=== PATIENT | male | born 1945 | race Caucasian/White ===

== ENCOUNTER → 2017-04-12 | Outpatient (CLI) | payer MEDICARE ==
--- NOTE | 2017-04-12 15:09 | XR ---
EXAMINATION TYPE: XR chest 2V DATE OF EXAM: 04/12/2017 COMPARISON: Prior chest x-ray 09/25/2015 HISTORY: Acute bronchitis, cough TECHNIQUE: Frontal and lateral views of the chest are obtained. FINDINGS: No evident pneumothorax. The cardiac silhouette size is within normal limits. Patient is rotated. There is blunting of the left costophrenic angle, increased density present at the posterior costophrenic sulcus. The osseous structures are intact. IMPRESSION: There may be left lower lobe pneumonia, associated effusion. Findings of developed in th e interval. Follow-up is recommended.
== END | disposition home or self-care (01) ==
LOC: RADXRMAIN 12:52
PROVIDERS: ATTEND Internal Medicine
DX: J20.9 Acute bronchitis, unspecified (principal)
CPT/HCPCS: 71020

== ENCOUNTER → 2017-07-28 | Outpatient (CLI) | payer MEDICARE ==
--- NOTE | 2017-07-28 11:23 | XR ---
EXAMINATION TYPE: XR chest 2V DATE OF EXAM: 07/28/2017 COMPARISON: Prior exam 04/12/2017 HISTORY: Pleurisy, chest pain with cough TECHNIQUE: Frontal and lateral views of the chest are obtained. FINDINGS: There is no focal air space opacity, pleural effusion, or pneumothorax seen. Interval impr ovement of the left costophrenic angle visualization as compared to prior. The cardiac silhouette siz e is stable. Prominent lung volumes may be indicative of underlying COPD. There is bronchial wall thi ckening. Patient is rotated, suspect an underlying scoliosis. The osseous structures are intact. IMPRESSION: Correlate for bronchitis. Follow-up as indicated.
== END | disposition home or self-care (01) ==
LOC: RADXRYALE 10:00
PROVIDERS: ATTEND Internal Medicine
DX: R09.1 Pleurisy (principal)
CPT/HCPCS: 71020

== ENCOUNTER → 2017-09-26 | Outpatient (CLI) | payer MEDICARE ==
[2017-09-26 10:46] LABS: Anion Gap 8 mmol/L; Blood Urea Nitrogen 19 mg/dL (9-20); Carbon Dioxide 31 mmol/L (22-30); Chloride 101 mmol/L (98-107); Glucose 106 mg/dL (74-99); Potassium 4.4 mmol/L (3.5-5.1); Sodium 140 mmol/L (137-145)
== END | disposition home or self-care (01) ==
LOC: LABWHC1 10:00
PROVIDERS: ATTEND Internal Medicine Geriatric Medicine
DX: E87.6 Hypokalemia (principal)
CPT/HCPCS: 36415; 80048

== ENCOUNTER → 2018-12-26 | Outpatient (CLI) | payer MEDICARE, OTHER ==
--- NOTE | 2018-12-26 17:35 | CONS ---
CONSULTATION REASON FOR CONSULTATION: Sleep apnea. HISTORY OF PRESENT ILLNESS: This is a 73-year-old male patient was diagnosed having obstructive sleep apnea many years back through [facility]. The patient was given a CPAP machine. However, he ended up quitting the treatment as the treatment itself was making sleep quality worsened and he was not able to tolerate the treatment. Over the years, he was having increased snoring and witnessed apneas as reported by his and he is coming in for reevaluation. He goes to bed around 11:30 p.m., wakes up at 8 a.m. in the morning. He is a bit sleepy and tired during the day. His current Stuart Score is 10. No significant weight gain or weight loss over the years. He has developed issues with atrial fibrillation and he is also known to have hypertension, rheumatoid arthritis, hyperlipidemia diabetes mellitus, and acid reflux. Other comorbidities include prostate cancer and skin cancer. PAST MEDICAL HISTORY: 1. Obstructive sleep apnea. 2. Chronic atrial fibrillation. 3. Kidney stones. 4. Hypertension. 5. Rheumatoid arthritis. 6. Hyperlipidemia. 7. Diabetes mellitus. 8. Acid reflux. 9. Prostate cancer. 10.Skin cancer. SURGICAL HISTORY: Includes prostatectomy and skin cancer removal. DRUG ALLERGIES: Not known. He has hayfever. OUTPATIENT MEDICATION LIST: Includes: 1. Combination of Telmisartan and hydrochlorothiazide 80/12.5, 1 tablet a day. 2. Norvasc 10 daily. 3. Prednisone 5 every other day. 4. Hydralazine 25 mg p.o. twice a day. 5. Lipitor 20 mg once a day. 6. Metformin 5 mg p.o. daily. 7. Lansoprazole 30 mg p.o. daily. 8. Aspirin 81 mg p.o. daily. SOCIAL HISTORY: The patient is a nonsmoker. No history of alcohol. No history of IV drugs. FAMILY HISTORY: Negative for obstructive sleep apnea. OCCUPATIONAL HISTORY: The patient used to work in construction. REVIEW OF SYSTEMS: 14 point review of system was done. Positive findings are mentioned in history of present illness. The patient does not watch TV during the day. He said he sleeps on his side. He has gained some weight over the years. In fact, he has been fluctuating. Used to weigh 220 pounds. He went down to 175, and currently is up to 190. No sleep paralysis. No hallucinations. No cataplexy. No nasal polyposis. He is a nose breather. No history of any anemia. No depression or anxiety. No falls. No claustrophobia. Occasional grinding of the teeth has been reported. Otherwise a 14- point review of system is negative. PHYSICAL EXAMINATION: BP is 170/87, pulse 88, respirations 16, temp 98.4, saturation is 98% on room air. Weight is 210, height 5 feet 8 inches and BMI 31.9. Neck size 17.5 inches, Stuart score is 10. GENERAL APPEARANCE: Calm, comfortable. Head is atraumatic, normocephalic. NECK: Supple. Mallampati class IV. There is no goiter or neck masses. LUNGS: Clear to auscultation. HEART: Sounds regular rate and rhythm. Normal S1, S2. No S3. No murmurs. ABDOMEN: Soft, nontender. No organomegaly. EXTREMITIES: No edema. No cyanosis or clubbing. NEUROLOGIC: Alert and oriented x3. No focal neurological deficits. PSYCHIATRIC: Negative for anxiety or depression. SKIN: Negative for wounds or ulceration. IMPRESSION: 1. Obstructive sleep apnea. The patient has failed CPAP therapy in the past. He is coming in for reevaluation. 2. Mild fatigue and sleepiness, Stuart Score is 10. 3. History of atrial fibrillation. 4. History of hypertension. 5. Rheumatoid arthritis. 6. Hyperlipidemia. 7. Diabetes mellitus. 8. Acid reflux. 9. Prostate cancer. 10.Skin cancer. PLAN: The patient will be set up for a re-evaluation. He will need a polysomnogram to assess the presence and severity of obstructive sleep apnea and decide if treatment is needed. Note that he has been treated in the past with CPAP therapy and he has failed for reasons that are not clear to me. For all these reasons, we will re-evaluate his condition and make final decision if treatment is needed. MMODL / IJN: [id number] /
== END | disposition home or self-care (01) ==
LOC: SLEEP 13:04
PROVIDERS: ATTEND Internal Medicine Critical Care Medicine
DX: G47.33 Obstructive sleep apnea (adult) (pediatric) (principal); R53.83 Other fatigue; I48.2 Chronic atrial fibrillation; I10 Essential (primary) hypertension; M06.9 Rheumatoid arthritis, unspecified; E78.5 Hyperlipidemia, unspecified; F17.200 Nicotine dependence, unspecified, uncomplicated; E11.9 Type 2 diabetes mellitus without complications; K21.9 Gastro-esophageal reflux disease without esophagitis; C44.90 Unspecified malignant neoplasm of skin, unspecified; C61 Malignant neoplasm of prostate; Z90.79 Acquired absence of other genital organ(s); Z79.84 Long term (current) use of oral hypoglycemic drugs; Z79.52 Long term (current) use of systemic steroids; Z79.82 Long term (current) use of aspirin; Z87.442 Personal history of urinary calculi
CPT/HCPCS: 99211

== ENCOUNTER 2020-03-10 07:18 | Emergency (ER) | payer MEDICARE, OTHER ==
[2020-03-10 07:27] VITALS: RESP 18
--- NOTE | 2020-03-10 07:40 | ED ---
General Adult HPI - General Chief complaint: Abdominal Pain Stated complaint: Kidney Stone Time Seen by Provider: 03/10/20 07:22 Source: patient Mode of arrival: ambulatory Limitations: no limitations - History of Present Illness Initial comments: Dictation was produced using [employer] dictation software. please excuse any grammatical, word or spelling errors. This patient was cared for during a federal and state declared state of emergency secondary to Covid 19 Chief Complaint: 74-year-old male past medical history of kidney stones, atrial fibrillation, hypertension, sleep apnea and rheumatoid arthritis presents with right flank pain. History of Present Illness: 74-year-old male he has multiple comorbidities presents today with several weeks of right-sided flank pain. Patient states he has a history of kidney stones. He believes that his symptoms represent kidney stones. Patient states his pain is to the right lower back. He reports that his symptoms initially started couple weeks ago. Over the last 3-4 days to symptoms have been acutely worsening. Patient states he has a history of calcium oxalate stones. He's had multiple lithotripsies and mechanical removal of stones. He does not have an established urologist in town does complain of some mild nausea and nonbilious nonbloody emesis. He states that his symptoms have been fairly control of her last 48 hours. Denies any fever, chills or constitutional symptoms. He reports that his pain is more towards his posterior flank area on the right side. States that it is colicky in nature. The ROS documented in this emergency department record has been reviewed and confirmed by me. Those systems with pertinent positive or negative responses have been documented in the HPI. All other systems are other negative and/or noncontributory. PHYSICAL EXAM: General Impression: Alert and oriented x3, not in acute distress HEENT: Normocephalic atraumatic, extra-ocular movements intact, pupils equal and reactive to light bilaterally, mucous membranes moist. Cardiovascular: Heart regular rate and rhythm Chest: Able to complete full sentences, no retractions, no tachypnea Abdomen: abdomen soft, non-tender, non-distended, no organomegaly Musculoskeletal: Pulses present and equal in all extremities, no peripheral edema Motor: no focal deficits noted Neurological: CN II-XII grossly intact, no focal motor or sensory deficits noted Skin: Intact with no visualized rashes Psych: Normal affect and mood ED course: 74-year-old male past medical history of kidney stones presents with chief complaint of right lower back pain and right flank pain. All signs upon arrival are within acceptable limits. Laboratory evaluation obtained. CBC unremarkable. No leukocytosis. Coag panel unremarkable. Metabolic panel is negative. Urinalysis is negative. Computed tomography scan of the abdomen and pelvis shows arthritic changes to the lumbar spine, diverticulosis, bilateral nonobstructive nephrolithiasis, cholelithiasis. Patient evaluated bedside finding stable medical condition. This point there is no indication for antibiotic administration or inpatient admission. Patient's well-appearing. He is agreeable with discharge. He is given outpatient for her to urology. Patient told of the incidental finding seen on the CT. He is advised to follow-up with his primary care physician regarding these abnormalities. Return parameters discussed. Patient clear for discharge. EKG interpretation: Ventricular rate 38, atrial fibrillation and so ventricular response, QRS 120, QTC 370. No LA prolongation, no QTC prolongation, no ST or T- wave changes noted. - Related Data Home Medications Medication Instructions Recorded Confirmed Hydrochlorothiazide [Hydrodiuril] 25 mg PO BID 05/29/14 05/29/14 Lansoprazole 30 mg PO DAILY 05/29/14 05/29/14 Leflunomide [Arava] 20 mg PO DAILY 05/29/14 05/30/14 Losartan [Cozaar] 100 mg PO HS 05/29/14 05/29/14 Methotrexate Sodium [Methotrexate] 20 mg PO Q7D 05/29/14 05/30/14 predniSONE 2.5 mg PO DAILY 05/29/14 05/30/14 traMADol HCl [Ultram] 100 mg PO BID PRN 05/29/14 05/29/14 Cholecalciferol [Vitamin D3] 1,000 unit PO HS 05/30/14 05/30/14 Folic Acid 05/30/14 05/30/14 Vitamin B Complex 1 tab PO HS 05/30/14 05/30/14 Allergies Allergy/AdvReac Type Severity Reaction Status Date / Time No Known Allergies Allergy Verified 03/10/20 07:27 Review of Systems ROS Statement: Those systems with pertinent positive or pertinent negative responses have been documented in the HPI. ROS Other: All systems not noted in ROS Statement are negative. Past Medical History Past Medical History: Atrial Fibrillation, Asthma, Cancer, GERD/Reflux, Hypertension, Osteoarthritis (OA), Rheumatoid Arthritis (RA), Sleep Apnea/CPAP/BIPAP Additional Past Medical History / Comment(s): PROSTATE AND SKIN CANCER, hx kidney stones History of Any Multi-Drug Resistant Organisms: None Reported Past Surgical History: Bladder Surgery, Heart Catheterization, Orthopedic Surgery, Prostate Surgery Additional Past Surgical History / Comment(s): removal of skin cancer, deviated septum, left knee surgery, rt shoulder rotator cuff Past Anesthesia/Blood Transfusion Reactions: Previous Problems w/ Anesthesia Additional Past Anesthesia/Blood Transfusion Reaction / Comment(s): ATRIAL FIBRILLATION Past Psychological History: No Psychological Hx Reported Smoking Status: Never smoker Past Alcohol Use History: Rare Past Drug Use History: None Reported - Past Family History Mother Family Medical History: Cancer General Exam Limitations: no limitations Course Vital Signs 03/10/20 07:22 Temperature 98.1 F Pulse Rate 47 L Respiratory 18 Rate Blood Pressure 158/80 O2 Sat by Pulse 97 Oximetry Medical Decision Making - Lab Data Result diagrams: 03/10/20 07:52 03/10/20 07:52 Lab Results 03/10/20 03/10/20 03/10/20 Range/Units 07:52 07:52 07:52 WBC 7.8 (3.8-10.6) k/uL RBC 4.52 (4.30-5.90) m/uL Hgb 13.8 (13.0-17.5) gm/dL Hct 43.1 (39.0-53.0) % MCV 95.5 (80.0-100.0) fL MCH 30.6 (25.0-35.0) pg MCHC 32.0 (31.0-37.0) g/dL RDW 13.8 (11.5-15.5) % Plt Count 295 (150-450) k/uL Neutrophils % 68 % Lymphocytes % 18 % Monocytes % 6 % Eosinophils % 6 % Basophils % 1 % Neutrophils # 5.3 (1.3-7.7) k/uL Lymphocytes # 1.4 (1.0-4.8) k/uL Monocytes # 0.5 (0-1.0) k/uL Eosinophils # 0.5 (0-0.7) k/uL Basophils # 0.1 (0-0.2) k/uL PT 9.6 (9.0-12.0) sec INR 0.9 (<1.2) APTT 21.7 L (22.0-30.0) sec Sodium (137-145) mmol/L Potassium (3.5-5.1) mmol/L Chloride (98-107) mmol/L Carbon Dioxide (22-30) mmol/L Anion Gap mmol/L BUN (9-20) mg/dL Creatinine (0.66-1.25) mg/dL Est GFR (CKD-EPI)AfAm (>60 ml/min/1.73 sqM) Est GFR (CKD-EPI)NonAf (>60 ml/min/1.73 sqM) Glucose (74-99) mg/dL Calcium (8.4-10.2) mg/dL Urine Color Dark Yellow Urine Appearance Clear (Clear) Urine pH 5.5 (5.0-8.0) Ur Specific [place] 1.026 (1.001-1.035) Urine Protein Trace H (Negative) Urine Glucose (UA) Negative (Negative) Urine Ketones Negative (Negative) Urine Blood Negative (Negative) Urine Nitrite Negative (Negative) Urine Bilirubin Negative (Negative) Urine Urobilinogen 2.0 (<2.0) mg/dL Ur Leukocyte Esterase Negative (Negative) 03/10/20 Range/Units 07:52 WBC (3.8-10.6) k/uL RBC (4.30-5.90) m/uL Hgb (13.0-17.5) gm/dL Hct (39.0-53.0) % MCV (80.0-100.0) fL MCH (25.0-35.0) pg MCHC (31.0-37.0) g/dL RDW (11.5-15.5) % Plt Count (150-450) k/uL Neutrophils % % Lymphocytes % % Monocytes % % Eosinophils % % Basophils % % Neutrophils # (1.3-7.7) k/uL Lymphocytes # (1.0-4.8) k/uL Monocytes # (0-1.0) k/uL Eosinophils # (0-0.7) k/uL Basophils # (0-0.2) k/uL PT (9.0-12.0) sec INR (<1.2) APTT (22.0-30.0) sec Sodium 138 (137-145) mmol/L Potassium 4.1 (3.5-5.1) mmol/L Chloride 104 (98-107) mmol/L Carbon Dioxide 25 (22-30) mmol/L Anion Gap 9 mmol/L BUN 18 (9-20) mg/dL Creatinine 0.98 (0.66-1.25) mg/dL Est GFR (CKD-EPI)AfAm 88 (>60 ml/min/1.73 sqM) Est GFR (CKD-EPI)NonAf 76 (>60 ml/min/1.73 sqM) Glucose 127 H (74-99) mg/dL Calcium 9.4 (8.4-10.2) mg/dL Urine Color Urine Appearance (Clear) Urine pH (5.0-8.0) Ur Specific [place] (1.001-1.035) Urine Protein (Negative) Urine Glucose (UA) (Negative) Urine Ketones (Negative) Urine Blood (Negative) Urine Nitrite (Negative) Urine Bilirubin (Negative) Urine Urobilinogen (<2.0) mg/dL Ur Leukocyte Esterase (Negative) Disposition Clinical Impression: Back pain Disposition: HOME SELF-CARE Condition: Good Instructions (If sedation given, give patient instructions): Gallstones (ED), Kidney Stones (ED), Chronic Back Pain (DC) Is patient prescribed a controlled substance at d/c from ED?: No Referrals: Catherine Lewis MD [Primary Care Provider] - 1-2 days Heriberto Patino MD [STAFF PHYSICIAN] - 1-2 days Time of Disposition: 09:22
[2020-03-10 07:59] LABS: Appearance,Urine Clear (Clear); Basophils # (A) 0.1 k/uL (0-0.2); Basophils % (A) 1 %; Bilirubin,Urine Negative (Negative); Blood,Urine Negative (Negative); Color,Urine Dark Yellow; Eosinophils # (A) 0.5 k/uL (0-0.7); Eosinophils % (A) 6 %; Glucose,Urine (UA) Negative (Negative); HCT 43.1 % (39.0-53.0); HGB 13.8 gm/dL (13.0-17.5); Ketones,Urine Negative (Negative); Leukocyte Esterase,Urine Negative (Negative); Lymphocytes # (A) 1.4 k/uL (1.0-4.8); Lymphocytes % (A) 18 %; MCH 30.6 pg (25.0-35.0); MCV 95.5 fL (80.0-100.0); Mean Platelet Volume 7.3; Monocytes # (A) 0.5 k/uL (0-1.0); Monocytes % (A) 6 %; Neutrophils # (A) 5.3 k/uL (1.3-7.7); Neutrophils % (A) 68 %; Nitrite,Urine Negative (Negative); PH, Urine 5.5 (5.0-8.0); Platelet Count 295 k/uL (150-450); Protein,Urine Trace (Negative); RBC 4.52 m/uL (4.30-5.90); RDW 13.8 % (11.5-15.5); Specific Gravity,Urine 1.026 (1.001-1.035); WBC 7.8 k/uL (3.8-10.6)
[2020-03-10 08:12] LABS: Calcium 9.4 mg/dL (8.4-10.2); Potassium 4.1 mmol/L (3.5-5.1)
[2020-03-10 08:14] LABS: INR 0.9 (<1.2); Prothrombin Time 9.6 sec (9.0-12.0)
[2020-03-10 08:17] LABS: Partial Thromboplastin Time 21.7 sec (22.0-30.0)
--- NOTE | 2020-03-10 09:05 | CT ---
EXAMINATION TYPE: CT abdomen pelvis wo con DATE OF EXAM: 03/10/2020 COMPARISON: None HISTORY: 74-year-old male Kidney stones, right flank pain CT DLP: 875.7 mGycm. Automated exposure control for dose reduction was used. TECHNIQUE: Contiguous axial scanning of the abdomen and pelvis without IV contrast. Coronal and sagit elier reconstructions performed. FINDINGS: Heart normal size without pericardial effusion. Lung bases clear without pleural effusion. Small hiatal hernia. Noncontrast appearance of the liver, adrenal glands, spleen, and pancreas within normal limits. 5 nonobstructive right renal calculi measuring up to 4 mm. 3 nonobstructive left renal calculi measuring up to 6 mm. No hydronephrosis on either side. Bilateral perinephric stranding likely senescent change. Calculi measuring up to 1.4 cm and the nondistended gallbladder. No dilated small bowel, fluid, or free air. No mesenteric or retroperitoneal lymphadenopathy. Normal appendix. Mild stool burden. Left-sided colonic diverticulosis, greatest in the sigmoid colon. No pericolonic inflammatory change. Mild circumferential bladder wall thickening. Left-sided pelvic phleboliths. Prostate gland not visua lized. No abnormal fluid collection in the pelvis or pelvic lymphadenopathy. Bones: Mild degenerative change at the hips. Degenerative changes left SI joint. Nonspecific small sclerotic foci left iliac bone adjacent to the SI joint, likely bone islands. Moder ate degenerative disc disease throughout and hypertrophic facet arthropathy lower lumbar spine. Trace grade 1 anterolisthesis L4-L5. IMPRESSION: 1. Bilateral nonobstructive nephrolithiasis measuring up to 6 mm. No hydronephrosis or suspicious ur eteral calculus. 2. Cholelithiasis. 3. Left-sided colonic diverticulosis, greatest in the sigmoid colon. No evidence for acute diverticu litis. 4. Circumferential bladder wall thickening could represent chronic bladder wall hypertrophy. Correla te to exclude cystitis. 5. Small hiatal hernia. Prostate gland is small or surgically absent. Clinically correlate.
[2020-03-10] MEDS ORDERED: ACET/COD 300 MG/30 MG STARTER PACK 6 TAB BTL PO STA (09:22)
[2020-03-10 09:33] VITALS: BP 140/84; PULSE 44; TEMP 98
== END 2020-03-10 09:39 | disposition home or self-care (01) ==
LOC: EC 07:18
DX: N20.0 Calculus of kidney (principal); K80.20 Calculus of gallbladder without cholecystitis without obstruction; K57.30 Diverticulosis of large intestine without perforation or abscess without bleeding; J45.909 Unspecified asthma, uncomplicated; I10 Essential (primary) hypertension; I48.91 Unspecified atrial fibrillation; M06.9 Rheumatoid arthritis, unspecified; G47.30 Sleep apnea, unspecified; Z79.899 Other long term (current) drug therapy; Z79.52 Long term (current) use of systemic steroids; Z99.89 Dependence on other enabling machines and devices; Z80.9 Family history of malignant neoplasm, unspecified; Z85.828 Personal history of other malignant neoplasm of skin; Z85.46 Personal history of malignant neoplasm of prostate; Z95.5 Presence of coronary angioplasty implant and graft; Z98.890 Other specified postprocedural states
CPT/HCPCS: 36415; 74176; 80048; 81003; 85025; 85610; 85730; 93005; 99284

== ENCOUNTER → 2020-03-12 | Outpatient (CLI) | payer MEDICARE, OTHER ==
--- NOTE | 2020-03-12 13:02 | XR ---
EXAMINATION TYPE: XR abdomen 1V DATE OF EXAM: 03/12/2020 COMPARISON: 03/10/2020 HISTORY: Pain TECHNIQUE: One view abdominal series FINDINGS: The osseous structures are intact. The bowel gas pattern is nonspecific. Right upper quadrant calcif ication correlate for cholelithiasis. Right kidney: There are approximately 5 calcifications involving the right kidney measuring approxima tely 4 mm in greatest dimension. Left kidney: There are approximately 3 calculi in the left kidney with the greatest diameter measurin g 4 mm.. Hypertrophic and degenerative changes spine. Calcifications in the pelvis are stable and likely vascu lar. Arthropathy of the hips. IMPRESSION: 1. Nonspecific abdomen. 2. Bilateral nephrolithiasis similar to the prior exam. 3. Right upper quadrant calcification compatible with cholelithiasis.
== END | disposition home or self-care (01) ==
LOC: RADXRMAIN 12:33
PROVIDERS: ATTEND Urology
DX: N20.0 Calculus of kidney (principal)
CPT/HCPCS: 74018

== ENCOUNTER → 2020-03-24 | Outpatient (CLI) | payer MEDICARE, OTHER ==
--- NOTE | 2020-03-24 22:00 | XR ---
EXAMINATION TYPE: XR abdomen 1V DATE OF EXAM: 03/24/2020 12:06 PM CLINICAL HISTORY: Kidney stone. TECHNIQUE: Single supine KUB image of the abdomen is obtained. COMPARISON: CT abdomen and pelvis March 10, 2020. Abdominal x-ray March 12, 2020.. FINDINGS: Poor visualization of small right-sided renal calculi on plain films similar to prior x-ray . Redemonstration of 2-3 adjacent small lower pole left renal calculi measuring up to 5 mm. Finding s table from prior studies. Overall nonobstructive bowel gas pattern. Persistent left-sided pelvic phleboliths. Visualized osseou s structures are intact. IMPRESSION: As above.
== END | disposition home or self-care (01) ==
LOC: RADXRMAIN 11:56
PROVIDERS: ATTEND Urology
DX: N20.0 Calculus of kidney (principal); I87.8 Other specified disorders of veins
CPT/HCPCS: 74018

== ENCOUNTER 2020-06-09 08:24 | Day surgery (SDC) | payer MEDICARE, OTHER ==
[2020-06-05 15:15] VITALS: BMI 29.5
[~2020-06-09 08:24] MED LIST: SODIUM CHLORIDE 0.9% 1,000 ML IV SCH; ceFAZolin 1,000 MG in SODIUM CHLORIDE 0.9% IRRIGATIO 250 ML IRRIGATION ONE
[2020-06-09 08:51] LABS: Glucose,Whole Blood 102 mg/dL (75-99)
[2020-06-09] MEDS ORDERED: PROPOFOL 10 MG/ML 20 ML VIAL IV ONE (09:29)
[2020-06-09] MEDS ORDERED: fentaNYL (PF) 50 MCG/ML 2 ML AMP ONE (09:29)
[2020-06-09] MEDS ORDERED: MIDAZOLAM 2 MG/2 ML VIAL ONE (09:29)
[2020-06-09] MEDS ORDERED: LIDOCAINE 1% INJ 10MG/ML (20 ML MDV) ONE ×2 (10:14→10:34)
[2020-06-09] MEDS ORDERED: LIDOCAINE 1% INJ 10MG/ML (20 ML MDV) SQ ONE (10:26)
[2020-06-09] MEDS ORDERED: SODIUM CHLORIDE 0.9% 1,000 ML IV ONE (11:25)
--- NOTE | 2020-06-09 12:35 | P.PRLE ---
RE: Gerardo Benavides Dear Catherine Gerardo underwent dual-chamber biventricular pacemaker with His bundle pacing successfully Patients with AV node disease or severe bradycardia, in whom the anticipated right ventricular pacing percentage will be high with standard dual-chamber pacing are at a disadvantage since RV pacing over years promotes LV systolic dysfunction and heart failure as well as increased episodes of atrial fibrillation. Biventricular pacing either using an LV lead in the coronary epicardial veins or His bundle pacing promotes a synchronized LV contraction and preserves LV systolic function with reduction in heart failure. One advantage of His bundle pacing is that it promotes conduction down both the normal bundles, simulating intrinsic conduction and preserving LV systolic function This is especially so in patients who already have LV dysfunction He has short bursts of atrial tachycardia. He will continue his antihypertensive therapy as before and will follow-up in the device clinic within a week Thank you for entrusting me with the care of the patient Warm regards Sincerely Skyler Zavala,
[2020-06-09] MEDS ORDERED: ACETAMINOPHEN IV (For NPO) 1,000 MG in EMPTY BAG 1 BAG IVPB ONE (12:36)
[2020-06-09] MEDS ORDERED: HYDROcodone/APAP 5-325MG 1 EACH TAB PO PRN (12:36)
[2020-06-09] MEDS ORDERED: traMADol 50 MG TAB PO PRN (12:39)
--- NOTE | 2020-06-09 13:56 | XR ---
EXAMINATION TYPE: XR chest 1V portable DATE OF EXAM: 06/09/2020 COMPARISON: 07/28/2017 HISTORY: Lead placement check TECHNIQUE: Single frontal view of the chest is obtained. FINDINGS: There is no focal air space opacity, pleural effusion, or pneumothorax seen. The cardiac silhouette size is within normal limits. The osseous structures are intact. The heart is within nor mal limits in size. Double lead cardiac device seen. IMPRESSION: 1. Cardiac lead in position with no postprocedural complication..
--- NOTE | 2020-06-09 13:57 | P.PCN ---
Preoperative Diagnosis: Left upper extremity venogram 50 mL IV dye injected in the left arm. Patent subclavian innominate and left axillary vein as well as left cephalic vein Plan Proceed with biventricular pacemaker implant
[2020-06-09] MEDS: hydrALAZINE HCL 25 MG TAB PO SCH (20:34)
[2020-06-09] MEDS: metFORMIN 500 MG TAB PO SCH (20:34)
[2020-06-09] MEDS: ACETAMINOPHEN TAB 325 MG TAB PO PRN (20:34)
[2020-06-09] MEDS: sulfaSALAzine 500 MG TAB PO SCH (20:36)
[2020-06-10] MEDS: ACETAMINOPHEN TAB 325 MG TAB PO PRN (02:17)
[2020-06-10 03:40] VITALS: PULSE 71
[2020-06-10 07:53] VITALS: BP 187/97; RESP 16; TEMP 98.3
[2020-06-10] MEDS: hydrALAZINE HCL 25 MG TAB PO SCH (08:02)
[2020-06-10] MEDS: sulfaSALAzine 500 MG TAB PO SCH (08:03)
[2020-06-10] MEDS: metFORMIN 500 MG TAB PO SCH (08:03)
[2020-06-10] MEDS ORDERED: ASPIRIN 81 MG PO SCH (09:00)
[2020-06-10] MEDS ORDERED: ATORVASTATIN 20 MG TAB PO SCH (09:00)
[2020-06-10] MEDS ORDERED: LOSARTAN 50 MG TAB PO SCH (09:00)
[2020-06-10] MEDS ORDERED: amLODIPine 10 MG TAB PO SCH (09:00)
[2020-06-10] MEDS ORDERED: hydroCHLOROthiazide 12.5 MG CAP PO SCH ×2 (09:00→10:00)
--- NOTE | 2020-06-10 09:20 | PCN ---
PROCEDURE NOTE Gerardo Benavides is a 75-year-old male patient who has sick sinus syndrome, AV node dysfunction and severe bradycardia even during the daytime. He is not on any AV moriah blocking drugs noted, no noted. He is brought in for a biventricular pacemaker for management of bradycardia and avoidance of 100% RV pacing. The patient brought to the EP lab in a fasting state. Written informed consent was obtained prior to the procedure. The left shoulder area was prepped and draped as per protocol; 1% lidocaine was used for local anesthesia. A 4 cm incision was made parallel to the deltopectoral groove, about 1.5 cm medial to it. The incision was carried down to the level of the pectoralis muscle. The vein was accessed at 3 separate points under fluoroscopy and via appropriately-sized introducer sheaths, 3 leads were positioned. The atrial lead was a Medtronic screw-in lead, model #4076, 52 cm in length and serial #[id number]. This was screwed in the right atrial appendage. P waves 4 mV, pacing impedance 494 ohms, pacing threshold 1.5 V at 0.5 milliseconds, 10 V test negative. The RV lead was screwed in the RV apex. This is a Medtronic model #4076, 58 cm in length and serial #[id number]. R-waves 14.5 mV. Pacing impedance 855 ohms, pacing threshold 0.5 V at 0.5 milliseconds, 10 V test was negative. The HIS bundle lead was positioned in the HIS bundle area. This was a model #3830, 69 cm length and serial #[id number], pacing impedance 570 ohms, nonselective capture was noted down to 1 V at 1 millisecond. All 3 leads were secured to the underlying pectoralis muscle. The leads were connected to the generator (model #W1TR02, serial #[id number] CRTP MRI compatible, Bindu. The leads and generator were then placed in subfascial pocket. The wound was closed in 3 layers and dressed per protocol. The device was secured to the underlying muscle. RESULT: Successful dual-chamber biventricular pacemaker implantation for bradycardia secondary to both sick sinus syndrome as well as significant AV node disease. High likelihood of 100% RV pacing, hence a biventricular pacemaker was implanted with physiologic septal pacing. MMODL / IJN: [id number] /
[2020-06-10] MEDS ORDERED: LOSARTAN 50 MG TAB PO STA (09:49)
--- NOTE | 2020-06-10 10:45 | P.DS ---
Providers Attending physician: Skyler Zavala [facility] Course: Patient is doing well. He does have discomfort in the pacemaker site area but there is no hematoma minimal soakage No chest discomfort no dizziness lightheadedness or palpitations His blood pressure is elevated once again this morning A symptomatic On examination blood pressure 187/97, 149/71 and 151/77 Afebrile 98.3F, pulse rate of 70s number respirations Orthopnea Normal heart sounds Normal lung sounds Impression Severe bradycardia, daytime, symptomatic with underlying sick sinus syndrome and AV node disease Status post biventricular pacemaker with physiologic septal pacing Pacemaker is functioning normally Hypertension, uncontrolled Suggest Increase telmisartan had a thiazide to 2 tablets daily Continue all other medications as before and take amlodipine the evening Pacemaker follow-up 1 week Follow-up with Dr. Zavala 3 weeks Plan - Discharge Summary Discharge Rx Participant: No New Discharge Prescriptions: No Action traMADol HCl [Ultram] 100 mg PO BID PRN PRN Reason: Pain RX: Lansoprazole 30 mg PO DAILY Cholecalciferol [Vitamin D3] 1,000 unit PO HS Aspirin EC [Ecotrin Low Dose] 81 mg PO DAILY metFORMIN HCL [Glucophage] 500 mg PO BID Atorvastatin [Lipitor] 20 mg PO DAILY RX: amLODIPine BESYLATE 10 mg PO DAILY RX: predniSONE 5 mg PO Q48H sulfaSALAzine [Sulfasalazine] 1,000 mg PO BID RX: hydrALAZINE HCL [Apresoline] 25 mg PO BID Telmisartan/Hydrochlorothiazid [Telmisartan-Hctz 80-12.5 mg Tb] 1 each PO DAILY Discharge Medication List RX: Lansoprazole 30 mg PO DAILY 05/29/14 [History] traMADol HCl [Ultram] 100 mg PO BID PRN 05/29/14 [History] Cholecalciferol [Vitamin D3] 1,000 unit PO HS 05/30/14 [History] Aspirin EC [Ecotrin Low Dose] 81 mg PO DAILY 06/05/20 [History] Atorvastatin [Lipitor] 20 mg PO DAILY 06/05/20 [History] RX: amLODIPine BESYLATE 10 mg PO DAILY 06/05/20 [History] RX: hydrALAZINE HCL [Apresoline] 25 mg PO BID 06/05/20 [History] RX: predniSONE 5 mg PO Q48H 06/05/20 [History] Telmisartan/Hydrochlorothiazid [Telmisartan-Hctz 80-12.5 mg Tb] 1 each PO DAILY 06/05/20 [History] metFORMIN HCL [Glucophage] 500 mg PO BID 06/05/20 [History] sulfaSALAzine [Sulfasalazine] 1,000 mg PO BID 06/05/20 [History]
== END 2020-06-10 12:09 | disposition home or self-care (01) ==
LOC: CATHEP 08:24 → 3NCARDOBS 12:23 → CATHEP 06-10 12:09
PROVIDERS: ATTEND Internal Medicine Clinical Cardiac Electrophysiology
DX: I49.5 Sick sinus syndrome (principal); I44.1 Atrioventricular block, second degree; I45.10 Unspecified right bundle-branch block; I65.23 Occlusion and stenosis of bilateral carotid arteries; I10 Essential (primary) hypertension; Z79.82 Long term (current) use of aspirin; Z79.84 Long term (current) use of oral hypoglycemic drugs; Z79.52 Long term (current) use of systemic steroids; Z79.899 Other long term (current) drug therapy
CPT/HCPCS: 33225; 33208; 71045; C1769; C1892; C1898 ×2; C2621; J2250; J0690 ×3; J2001; J3010; J2704

== ENCOUNTER → 2021-01-06 | Outpatient (CLI) | payer MEDICARE, OTHER ==
--- NOTE | 2021-01-06 15:11 | XR ---
EXAMINATION TYPE: XR chest 2V DATE OF EXAM: 01/06/2021 HISTORY: Shortness of breath. COMPARISON: 06/09/2020 TECHNIQUE: Single view of the chest is submitted. FINDINGS: Demonstrated are scattered senescent parenchymal change. There is no evidence for focal infiltrate. The heart is stable. Hilar and mediastinal structures are within normal limits. Degenerative changes are seen of the dorsal spine. IMPRESSION: 1. Chronic changes without evidence for acute pulmonary disease.
== END | disposition home or self-care (01) ==
LOC: RADXRMAIN 14:49
PROVIDERS: ATTEND Internal Medicine
DX: R06.02 Shortness of breath (principal)
CPT/HCPCS: 71046

== ENCOUNTER → 2021-01-21 | Outpatient (CLI) | payer MEDICARE, OTHER ==
--- NOTE | 2021-01-21 15:09 | CT ---
EXAMINATION TYPE: CT chest wo con DATE OF EXAM: 01/21/2021 COMPARISON: 06/18/2016 HISTORY: H/O cough CT DLP: 198 mGycm, Automated exposure control for dose reduction was used. CONTRAST: None TECHNIQUE: Axial images were obtained at 1 mm thick sections at 10 mm intervals. This will limit po rtions of the examination which may not be visualized within the [id number]. Images were obtained in the prone and supine views. FINDINGS: Portion of the thyroid visualized is normal. No suspicious lung nodules or focal infiltrat es are present. No enlarged mediastinal or hilar adenopathy is evident. The ascending aorta diameter at the level o f the main pulmonary artery is 3.6 cm. The main pulmonary artery diameter at the bifurcation is 2.8 cm. Small pericardial effusion is present. Limited CT sections are obtained through the upper abdomen. Abdomen is essentially unremarkable. IMPRESSIONS: 1. No suspicious acute changes within the lungs high-resolution CT chest. 2. Small pericardial effusion is present.
== END | disposition home or self-care (01) ==
LOC: RADCTMAIN 13:25
PROVIDERS: ATTEND Internal Medicine
DX: I31.3 Pericardial effusion (noninflammatory) (principal)
CPT/HCPCS: 71250

== ENCOUNTER → 2021-02-06 | Outpatient (CLI) | payer MEDICARE, OTHER ==
--- NOTE | 2021-02-07 15:54 | ECHOF ---
Referral Reason:I31.3 Pericardial effusion (noninflammatory MEASUREMENTS -------- HEIGHT: 175.3 cm WEIGHT: 95.7 kg BP: 143/75 IVSd: 1.4 cm (0.6 - 1.1) LVIDd: 4.0 cm (3.9 - 5.3) LVPWd: 1.5 cm (0.6 - 1.1) EDV(Teich): 71 ml IVSs: 1.7 cm LVIDs: 2.9 cm LVPWs: 1.9 cm %IVS Thck: 24 % ESV(Teich): 31 ml EF(Teich): 56 % %FS: 29 % SV(Teich): 40 ml LA Diam: 3.7 cm (2.7 - 3.8) RVIDd: 3.3 cm (< 3.3) LALs A4C: 4.5 cm LAAs A4C: 18.0 cm LAESV A-L A4C: 61 ml LAESV MOD A4C: 60 ml LALs A2C: 5.9 cm LAAs A2C: 19.1 cm LAESV A-L A2C: 53 ml LAESV MOD A2C: 49 ml LAESV(A-L): 65 ml LAESV Index (A-L): 30.71 ml/m HR_2Ch_Q: 64 bpm HR_4Ch_Q: 70 bpm LVVED_2Ch_Q: 81 ml LVVED_4Ch_Q: 115 ml LVVED_BiP_Q: 97 ml LVVES_2Ch_Q: 33 ml LVVES_4Ch_Q: 60 ml LVVES_BiP_Q: 44 ml LVEF_2Ch_Q: 59 % LVEF_4Ch_Q: 48 % LVEF_BiP_Q: 55 % LVSV_2Ch_Q: 48 ml LVSV_4Ch_Q: 55 ml LVSV_BiP_Q: 53 ml LVCO_2Ch_Q: 3.1 l/min LVCO_4Ch_Q: 3.9 l/min LVCO_BiP_Q: 3.7 l/min LVLs_2Ch_Q: 6.5 cm LVLs_4Ch_Q: 6.8 cm LVLd_2Ch_Q: 8.0 cm LVLd_4Ch_Q: 8.6 cm Ao Diam: 3.4 cm (2.0 - 3.7) AV Cusp: 2.4 cm (1.5 - 2.6) EPSS: 0.3 cm MV E Liam: 1.18 m/s MV DecT: 223 ms MV Dec [place]: 5.3 m/s MV A Liam: 0.84 m/s MV E/A Ratio: 1.40 MV PHT: 65 ms AV Vmax: 1.23 m/s AV maxP.04 mmHg TR Vmax: 2.36 m/s TR maxP.32 mmHg RAP: 5.00 mmHg RVSP: 27.32 mmHg MV EF SLOPE: 54.51 mm/s (70 - 150) MV EXCURSION: 19.44 mm (> 18.000) FINDINGS -------- Paced rhythm. This was a technically adequate study. The left ventricular size is normal. There is moderate concentric left ventricular hypertrophy. O verall left ventricular systolic function is mildly impaired with, an EF between 45 - 50 %. The right ventricle is mildly enlarged. LA is moderately dilated 34-39 ml/m2 The right atrium is normal in size. Interatrial and interventricular septum intact. There is mild aortic valve sclerosis. Mild mitral annular calcification present. Mild tricuspid regurgitation present. Right ventricular systolic pressure is normal at < 35 mmHg. There is no pulmonic regurgitation present. The aortic root size is normal. IVC Not well visulized. There is a small, generalized pericardial effusion present. CONCLUSIONS -------- 1. The left ventricular size is normal. 2. There is moderate concentric left ventricular hypertrophy. 3. Overall left ventricular systolic function is mildly impaired with, an EF between 45 - 50 %. 4. The right ventricle is mildly enlarged. 5. LA is moderately dilated 34-39 ml/m2 6. There is mild aortic valve sclerosis. 7. Mild mitral annular calcification present. 8. Mild tricuspid regurgitation present. 9. There is a small, generalized pericardial effusion present. CARE AID: Citlalli Grimm RDCS
== END | disposition home or self-care (01) ==
LOC: RADECHMAIN 13:48
PROVIDERS: ATTEND Internal Medicine
DX: I31.3 Pericardial effusion (noninflammatory) (principal); I07.1 Rheumatic tricuspid insufficiency
CPT/HCPCS: 93306

== ENCOUNTER 2021-05-04 09:50 | Day surgery (SDC) | payer MEDICARE, OTHER ==
[2021-05-04 10:19] LABS: Glucose,Whole Blood 113 mg/dL (75-99)
[2021-05-04] MEDS ORDERED: SODIUM CHLORIDE 0.9% 1,000 ML IV ONE (10:20)
[2021-05-04] MEDS ORDERED: PHENYLEPHRINE-0.9% NACL SYG 1,000 MCG/10 ML SYRINGE ONE (11:41)
[2021-05-04] MEDS ORDERED: PROTAMINE SULFATE 10 MG/ML 5 ML VIAL IV ONE (11:41)
[2021-05-04] MEDS ORDERED: LIDOCAINE 1% INJ 10MG/ML (20 ML MDV) ONE ×2 (11:41→11:57)
[2021-05-04] MEDS ORDERED: SUCCINYLCHOLINE CHLORIDE 100 MG/5 ML SYR IV ONE (11:41)
[2021-05-04] MEDS ORDERED: DEXAMETHASONE SOD PHOSPHATE 4 MG/ML 1 ML VIAL ONE (11:41)
[2021-05-04] MEDS ORDERED: PROPOFOL 10 MG/ML 20 ML VIAL IV ONE (11:41)
[2021-05-04] MEDS ORDERED: fentaNYL (PF) 50 MCG/ML 2 ML AMP ONE (11:41)
[2021-05-04] MEDS ORDERED: MIDAZOLAM 2 MG/2 ML VIAL ONE (11:41)
[2021-05-04] MEDS ORDERED: ONDANSETRON 4 MG/2 ML VIAL ONE (11:41)
[2021-05-04] MEDS ORDERED: FUROSEMIDE 10 MG/ML 2 ML VIAL ONE (11:41)
[2021-05-04] MEDS ORDERED: ROCURONIUM 10 MG/ML (5 ML VIAL) IV ONE (11:41)
[2021-05-04] MEDS ORDERED: HEPARIN SODIUM,PORCINE 10,000 UNIT/ML 1 ML VIAL ONE (11:41)
[2021-05-04] MEDS ORDERED: ISOPROTERENOL 250 MCG/1.25 ML SYR IV ONE (11:41)
[2021-05-04] MEDS ORDERED: IV FLUID CONTINUATION 950 ML IV ONE (11:44)
--- NOTE | 2021-05-04 12:03 | P.HPCAR ---
History of Present Illness This is Dr. Zavala dictating an H/P on this patient The patient was interviewed and examined IMPRESSION / ASSESSMENT: Paroxysmal atrial fibrillation despite flecainide, A. fib and 75%, symptomatic and recurrent Bradycardia Sick Sinus Syndrome AV node disease/Mobitz type II Status post His bundle pacemaker with Bi V pacing Essential hypertension Obstructive sleep apnea but intolerant of sleep apnea mask PLAN: Proceed with AF ablation with pulmonary vein isolation Septal ablation for atrial tachycardia Continue Pradaxa HPI Patient has been experiencing recurrent palpitations which are quite bothersome despite flecainide 50 mg twice daily In those instances he does not feel well He has failed flecainide He denies any shortness of breath lying flat in bed no recent fever chills cough expectoration or any GI symptoms ROS: No fever chills or rigors, no cough, phlegm or expectoration, no nausea, vomiting or diarrhea, no hematuria, dysuria, no musculoskeletal complaints, no strokes or seizures, no skin lesions. EXAMINATION: 137/70 mmHg Breath sounds are clear no rhonchi no crackles Heart sounds S1 and S2 are normal no murmurs Abdomen soft Ixodes warm No JVD no hepatojugular reflux REVIEW OF LABS, ECG & MEDICAL DATA glucose 113 Past Medical History Past Medical History: Asthma, Cancer, Diabetes Mellitus, Rheumatoid Arthritis (RA), Skin Disorder, Sleep Apnea/CPAP/BIPAP Additional Past Medical History / Comment(s): See Dr Zavala H&P. SCRAPED LEFT FOREARM ON 04/29/21. SEASONAL ALLERGIES. Hx PROSTATE AND SKIN CANCER , radiation for skin ca 2017, does not use CPAP,hx kidney stones History of Any Multi-Drug Resistant Organisms: None Reported Past Surgical History: Back Surgery, Bladder Surgery, Heart Catheterization, Orthopedic Surgery, Prostate Surgery Additional Past Surgical History / Comment(s): RECENT EYE SURGER. removal of skin cancer, deviated septum, left knee surgery, rt shoulder rotator cuff, peter cataract, carpal tunnel rt wrist Past Anesthesia/Blood Transfusion Reactions: Previous Problems w/ Anesthesia Additional Past Anesthesia/Blood Transfusion Reaction / Comment(s): V TAC & ATRIAL FIBRILLATION POST ANESTHESIA Past Psychological History: No Psychological Hx Reported Smoking Status: Never smoker Past Alcohol Use History: Rare Additional Past Alcohol Use History / Comment(s): currently chews tobacco, one can lasts 3 days Past Drug Use History: None Reported - Past Family History Mother Family Medical History: Cancer Results Current Medications Generic Name Dose Route Start Last Admin Trade Name Terryq PRN Reason Stop Dose Admin Sodium Chloride 1,000 mls @ 20 mls/hr 05/04/21 06:15 Saline 0.9% IV 06/03/21 06:16 .Q24H ARCHANA Lactated Ringer's 1,000 mls @ 20 mls/hr 05/04/21 06:15 Lactated Ringers IV 06/03/21 06:16 .Q24H ARCHANA
[2021-05-04] MEDS ORDERED: HEPARIN SOD,PORK IN 0.45% NACL 25,000 UNIT in 0.45% NACL 1 250ML.BAG IV ONE (12:09)
[2021-05-04] MEDS ORDERED: HEPARIN SODIUM (1,000 UNIT/ML) 1,000 UNIT in SODIUM CHLORIDE 0.9% 1,000 ML IRRIGATION ONE (12:09)
[2021-05-04] MEDS ORDERED: LIDOCAINE 1% INJ 10MG/ML (20 ML MDV) SQ ONE (12:33)
[2021-05-04] MEDS ORDERED: IOPAMIDOL-370 100ML BTL INJ ONE (13:46)
--- NOTE | 2021-05-04 16:07 | P.EPPROC ---
- EP Procedure Note Electrophysiology Procedure Note: PROCEDURE A. fib ablation, pulmonary vein isolation with linear ablation of left atrial septum DIAGNOSIS Atrial fibrillation, symptomatic, refractory to therapy Paroxysmal Failed flecainide Sick Sinus Syndrome AV node disease Mobitz 2 Status post His bundle pacemaker implant in the past RESULT No left atrial appendage mass seen on intracardiac echo Successful A. fib ablation/pulmonary vein isolation of all veins using cryo- ablation Complete entrance block in all 4 veins confirmed No evidence for phrenic nerve injury Linear ablation left atrial septum Elevated left and right atrial pressures Esophageal deflection YES PROCEDURE DETAILS Patient was brought to the EP lab in a fasting state. Written informed consent was obtained prior to the procedure. Procedure performed under general anesthesia After initial muscle relaxant use, muscle relaxants were not given thereafter in order to assess phrenic nerve during procedure. Patient prepped and draped as per protocol Full cryo-set up with standard preparation of the cryoablation tools done. Femoral Venous access obtained on the right and left groins Venous and arterial Sheaths placed. Diagnostic catheters for the high right atrium, phrenic nerve stimulation and pacing, His bundle, RV and coronary sinus placed Intracardiac echo catheter placed. Long sheath placed in the right atrium Left and right transseptal catheterization performed under intracardiac echo guidance. Intravenous heparin with aCT above 300 Later, catheter positioning and balloon positioning in the left atrium, under intracardiac echo guidance Diagnostic EP study with Drug infusion Coronary sinus pacing and recording Baseline measurements: Sinus cycle length 1035 ms, CA interval 131 ms paced, QRS 135 ms nonselective His bundle capture, QT 440 ms Burst stimulation from the proximal and distal coronary sinus no inducible atrial fibrillation with the end of the procedure Transseptal catheterization performed RA pressure 20/13/17 LA pressure 38/10/60 Transseptal catheterization performed with standard sheath. The cryoablation sheath was then placed with an over the wire exchange without any acute complications. All 4 pulmonary veins were isolated in the following sequence: Left superior followed by left inferior followed by right superior followed by right inferior The cryo-ablation balloon was placed at the os of each vein 1.5 mL of IV dye was injected to confirm an occluded vein Goal during cryoablation was to achieve complete occlusion of the pulmonary vein, achieve -30 degrees C at 30 seconds and achieve -40 degrees C at 60 seconds and a time to effect of less than 60-90 seconds, . If not the balloon was repositioned to obtain this result After completion of Cryoblation with durations from 180-240 seconds, entrance block was confirmed with the Attain circular catheter in a roving fashion around the antrum of the pulmonary veins Phrenic nerve pacing was performed from the SVC, right innominate vein area and diaphragm voltage was monitored. Diaphragmatic contractions were also monitored manually for strength of contraction. Parameter goals for each cryo freeze Complete occlusion of the appropriate vein -30 degrees C by 30 seconds -40 degrees C by 60 seconds Minimum between minus 40-55 degrees C Thaw time greater than 10 seconds Balloon visualized by intracardiac echo The esophagus was intubated. Esophageal Temperature monitoring with a CIRCA catheter formed. Esophageal deflection for hypothermia of the esophagus below 30 degrees C Left superior pulmonary vein Complete isolation, entrance block Left inferior pulmonary vein Complete isolation, entrance block Right superior pulmonary vein, during phrenic nerve pacing Complete isolation, entrance block Right inferior pulmonary vein, during phrenic nerve pacing Complete isolation, entrance block At the end of the procedure the Achieve catheter was once again used to check for entrance block Phrenic nerve stimulation was performed to confirm diaphragmatic stimulation the end of the procedure Cine fluoroscopy was performed at the very end of the procedure to confirm movement of both diaphragms with inspiration and expiration The sheath was exchanged once again RF ablation catheter was placed in the left atrium Intracardiac echocardiography revealed no evidence for pericardial effusion Left atrial appendage was examined again. 3-D electro-anatomic mapping was performed Voltage mapping was performed in the left atrium Along fractionated electrograms in the left atrial septum, posterior to the transseptal puncture him a linear ablation was performed and posterior segment was isolated At the end of the procedure the patient was extubated Heparin was reversed Venous sheaths were removed and hemostasis assured. Vascade closure device used Lead impedances were interrogated prior to the procedure and within the normal limits, in the mid 400s Device was programmed to DDD mode Through the procedure the AV delays were extended out to 250 ms Device was interrogated and reprogrammed to DDDR mode at the end of the procedure AV delay reprogrammed to 210/180 ms PROCEDURES PERFORMED Diagnostic EP study CS pacing and recording Left and right transseptal catheterization 3D mapping) Intracardiac echocardiography Pulmonary vein isolation with transseptal and comprehensive EPS, [id number] Left atrial roof line, +[id number] Drug Infusion +[id number] Device interrogation and reprogramming, pacemaker
[2021-05-04] MEDS ORDERED: ALBUTEROL NEBULIZED 2.5 MG/3 ML INHALATION PRN (16:18)
[2021-05-04] MEDS ORDERED: FLUTICASONE 110 MCG INHALER INHALATION PRN (16:18)
[2021-05-04] MEDS ORDERED: HYDROcodone/APAP 5-325MG 1 EACH TAB PO PRN (16:23)
[2021-05-04] MEDS ORDERED: ACETAMINOPHEN TAB 325 MG TAB PO PRN (16:23)
[2021-05-04] MEDS ORDERED: HYDROmorphone 0.5 MG/0.5 ML SYRINGE IVP ONE (16:25)
[2021-05-04 16:34] LABS: Glucose,Whole Blood 139 mg/dL (75-99)
[2021-05-04] MEDS: LACTATED RINGERS 1,000 ML IV SCH (16:57)
[2021-05-04] MEDS: SODIUM CHLORIDE 0.9% 1,000 ML IV SCH (16:57)
[2021-05-04] MEDS ORDERED: ACETAMINOPHEN IV (For NPO) 1,000 MG in EMPTY BAG 1 BAG IVPB ONE (17:30)
[2021-05-04 17:39] LABS: Glucose,Whole Blood 154 mg/dL (75-99)
[2021-05-04 20:51] LABS: Glucose,Whole Blood 227 mg/dL (75-99)
[2021-05-04] MEDS ORDERED: ATORVASTATIN 20 MG TAB PO SCH (21:00)
[2021-05-04] MEDS: TELMISARTAN PO SCH (21:47)
[2021-05-04] MEDS: HYDROCHLOROTHIAZID PO SCH (21:47)
[2021-05-04] MEDS: hydrALAZINE HCL 25 MG TAB PO SCH (21:49)
[2021-05-04] MEDS: sulfaSALAzine 500 MG TAB PO SCH (21:49)
[2021-05-04] MEDS: DABIGATRAN 150 MG CAP PO SCH (21:49)
[2021-05-05] MEDS: SODIUM CHLORIDE 0.9% 1,000 ML IV SCH (06:05)
[2021-05-05] MEDS: LACTATED RINGERS 1,000 ML IV SCH (06:05)
[2021-05-05] MEDS ORDERED: PANTOPRAZOLE 40 MG TABLET PO SCH (07:30)
--- NOTE | 2021-05-05 07:39 | P.DS ---
Providers Attending physician: Skyler Zavala Primary care physician: [facility] Course: Patient is doing well. No chest discomfort. He is a mild sore throat No dizziness lightheadedness He has ablated to the bathroom On examination his vitals are stable Rhythm is regular He isn't AV sequential paced rhythm with nonselective His bundle pacing Twelve-lead EKG shows a paced rhythm Breath sounds are clear no rhonchi no crackles Heart sounds S1 and S2 are normal Breath sounds no rhonchi no crackles Abdomen soft nontender Extremities warm No hematoma in the right groin no hematoma in the left groin Impression Paroxysmal atrial fibrillation, symptomatic and refractory to flecainide Elevated right and left atrial pressures Status post pulmonary vein isolation and linear ablation of left atrial septum No inducible atrial fibrillation thereafter despite atrial pacing and extras timulation as well as high-dose Isuprel Plan Continue Pradaxa uninterrupted Hold flecainide Continue all other medications His left atrial and right atrial pressures were elevated Consider diuretics in the future Plan - Discharge Summary Discharge Rx Participant: No New Discharge Prescriptions: No Action traMADol HCl [Ultram] 100 mg PO BID PRN PRN Reason: Pain Lansoprazole 30 mg PO QAM Cholecalciferol [Vitamin D3] 1,000 unit PO HS metFORMIN HCL [Glucophage] 500 mg PO QAM Atorvastatin [Lipitor] 20 mg PO HS amLODIPine BESYLATE 10 mg PO QAM predniSONE 5 mg PO Q48H sulfaSALAzine [Sulfasalazine] 1,000 mg PO BID hydrALAZINE HCL [Apresoline] 25 mg PO BID Telmisartan/Hydrochlorothiazid [Telmisartan-Hctz 80-12.5 mg Tb] 1 each PO BID Vitamin B Complex 1 tab PO DAILY Montelukast [Singulair] 10 mg PO QAM Glucosamine/Chondr Charles A Sod [Osteo Bi-Flex Caplet] 1 tab PO DAILY Albuterol Inhaler [Ventolin Hfa Inhaler] 1 puff INHALATION DIRECTED PRN PRN Reason: Shortness Of Breath Or Wheezing Fluticasone Propionate 110 Mcg [Flovent 110 Mcg Inhaler (Mhu)] 2 puff INHALATION DAILY PRN PRN Reason: Shortness Of Breath Dabigatran [Pradaxa] 150 mg PO BID Discharge Medication List Lansoprazole 30 mg PO QAM 05/29/14 [History] traMADol HCl [Ultram] 100 mg PO BID PRN 05/29/14 [History] Cholecalciferol [Vitamin D3] 1,000 unit PO HS 05/30/14 [History] Atorvastatin [Lipitor] 20 mg PO HS 06/05/20 [History] Telmisartan/Hydrochlorothiazid [Telmisartan-Hctz 80-12.5 mg Tb] 1 each PO BID 06/05/20 [History] amLODIPine BESYLATE 10 mg PO QAM 06/05/20 [History] hydrALAZINE HCL [Apresoline] 25 mg PO BID 06/05/20 [History] metFORMIN HCL [Glucophage] 500 mg PO QAM 06/05/20 [History] predniSONE 5 mg PO Q48H 06/05/20 [History] sulfaSALAzine [Sulfasalazine] 1,000 mg PO BID 06/05/20 [History] Albuterol Inhaler [Ventolin Hfa Inhaler] 1 puff INHALATION DIRECTED PRN 04/30/21 [History] Dabigatran [Pradaxa] 150 mg PO BID 04/30/21 [History] Fluticasone Propionate 110 Mcg [Flovent 110 Mcg Inhaler (Mhu)] 2 puff INHALATION DAILY PRN 04/30/21 [History] Glucosamine/Chondr Charles A Sod [Osteo Bi-Flex Caplet] 1 tab PO DAILY 04/30/21 [History] Montelukast [Singulair] 10 mg PO QAM 04/30/21 [History] Vitamin B Complex 1 tab PO DAILY 04/30/21 [History] Follow up Appointment(s)/Referral(s): Skyler Zavala MD [STAFF PHYSICIAN] - 1 Week (Follow-up with Jessica Morfin in about 2 weeks line discharged after 2 PM if hemodynamic stable, groins stable and pacemaker interrogation is complete) Activity/Diet/Wound Care/Special Instructions: Post EP study - Ablation instructions 1. Keep access sites dry for 2 days. 2. No heavy lifting or straining for 2 days. 3. Avoid bending the hips repeatedly for 2 days. 4. You may go up and down stairs slowly Call if the following is noted 1. Bleeding, increasing swelling or pain at the access sites. 2. Increasing chest discomfort, especially upon taking a deep breath. 3. Increasing shortness of breath, at rest or with exertion. 4. Undue cough / phlegm 5. Difficulty or pain while swallowing. 6. Pain or change in color in the extremities. 7. Fever, chills, rigors. 8. Increasing headache or neurologic symptoms. 9. Dizziness, fainting, palpitations No change in medications other than flecainide. Continue to hold flecainide Continue Pradaxa uninterrupted Discharge Disposition: HOME SELF-CARE
--- NOTE | 2021-05-05 07:40 | P.PRLE ---
RE: Gerardo Benavides Dear Rachael Gerardo underwent in A. fib ablation yesterday successfully He did very well through the procedure and is doing well today in follow-up Results Paroxysmal atrial fibrillation, symptomatic and refractory to flecainide Elevated right and left atrial pressures Status post pulmonary vein isolation and linear ablation of left atrial septum No inducible atrial fibrillation thereafter despite atrial pacing and extrastimulation as well as high-dose Isuprel Plan Continue Pradaxa uninterrupted Hold flecainide Continue all other medications His left atrial and right atrial pressures were elevated Consider diuretics in the future Thank you for entrusting me with the care of the patient Warm regards Sincerely Skyler Zavala
[2021-05-05] MEDS: hydrALAZINE HCL 25 MG TAB PO SCH (07:44)
[2021-05-05] MEDS: sulfaSALAzine 500 MG TAB PO SCH (07:44)
[2021-05-05] MEDS: DABIGATRAN 150 MG CAP PO SCH (07:44)
[2021-05-05] MEDS: HYDROCHLOROTHIAZID PO SCH (07:45)
[2021-05-05] MEDS: TELMISARTAN PO SCH (07:45)
[2021-05-05 07:52] LABS: Glucose,Whole Blood 109 mg/dL (75-99)
[2021-05-05 08:11] VITALS: RESP 18
[2021-05-05] MEDS ORDERED: MONTELUKAST 10 MG TAB PO SCH (09:00)
[2021-05-05] MEDS ORDERED: predniSONE 5 MG TAB PO SCH (09:00)
[2021-05-05] MEDS ORDERED: amLODIPine 10 MG TAB PO SCH (09:00)
[2021-05-05 10:09] LABS: African American GFR (CKD) 67.7 (60.0-200.0); BUN/Creat Ratio 19.17 Ratio (12.00-20.00); Calcium 8.4 mg/dL (8.7-10.3); Chol/HDL Ratio 2.46; LDL Cholesterol,Calculated 46.8 mg/dL (0.0-131.0); Non-African American GFR(CKD) 58.4 (60.0-200.0); Potassium 3.6 mmol/L (3.5-5.5); VLDL Calculation 20.2 mg/dL (5.00-40.00)
[2021-05-05 11:40] LABS: Glucose,Whole Blood 122 mg/dL (75-99)
[2021-05-05 14:18] VITALS: BP 114/72; PULSE 74; TEMP 98
[2021-05-06] MEDS ORDERED: metFORMIN 500 MG TAB PO SCH (07:30)
== END 2021-05-05 17:16 | disposition home or self-care (01) ==
LOC: CATHEP 09:50 → 6NMEDSUR 17:00 → CATHEP 05-05 17:16
PROVIDERS: ATTEND Internal Medicine Clinical Cardiac Electrophysiology
DX: I48.0 Paroxysmal atrial fibrillation (principal); Z95.0 Presence of cardiac pacemaker; I49.5 Sick sinus syndrome; I10 Essential (primary) hypertension; G47.33 Obstructive sleep apnea (adult) (pediatric); M06.9 Rheumatoid arthritis, unspecified; I44.1 Atrioventricular block, second degree; E11.9 Type 2 diabetes mellitus without complications; Z85.828 Personal history of other malignant neoplasm of skin; Z92.3 Personal history of irradiation; J45.909 Unspecified asthma, uncomplicated; Z72.0 Tobacco use; Z79.899 Other long term (current) drug therapy
CPT/HCPCS: 93662; 93613; 93656; 93657; 80048; 80061; 84443; C1894 ×2; C1769 ×4; C1760; C1893; C1733; C1766; C1730; C1732; J2250; J2720; J1644 ×3; J1100; J1940; J0690; J2405; J2001; J3010; J0131; J2370; J0330; J2704; J7512; J1170; Q9967

== ENCOUNTER → 2024-01-30 | Outpatient (CLI) | payer MEDICARE ==
--- NOTE | 2024-01-30 13:15 | XR ---
EXAMINATION TYPE: XR KUB DATE OF EXAM: 01/30/2024 11:42 AM CLINICAL INDICATION:Male, 78 years old with history of N20.0 Left renal stone; [facility] COMPARISON: None. TECHNIQUE: One radiographic view of the abdomen was obtained. FINDINGS: The bowel gas pattern is nonspecific without dilated loops of small or large bowel. There i s no evidence for organomegaly or pneumoperitoneum. The osseous structures are intact. Left renal c alculi measuring up to 6 mm mm. High density probable gallstones in the gallbladder lumen. Fecal mate rial and gas are demonstrated throughout the colon and rectum. Moderate degeneration changes of the hips with osteophyte formation thoracic spine. Multilevel degeneration changes spine with osteophyte formation. IMPRESSION: 1. Left nonobstructing renal calculus. 2. Nonspecific bowel gas pattern without radiographic evidence for acute process.
== END | disposition home or self-care (01) ==
LOC: RADXRMAIN 11:20
PROVIDERS: ATTEND Internal Medicine
DX: N20.0 Calculus of kidney (principal)
CPT/HCPCS: 74018

== ENCOUNTER 2024-03-13 09:58 | Day surgery (SDC) | payer MEDICARE ==
[~2024-03-13 09:58] MED LIST changes: -SODIUM CHLORIDE 0.9% 1,000 ML IV SCH; +VANCOMYCIN 1,500 MG in SODIUM CHLORIDE 0.9% 250 ML IVPB ONE; -ceFAZolin 1,000 MG in SODIUM CHLORIDE 0.9% IRRIGATIO 250 ML IRRIGATION ONE
[2024-03-13] MEDS: SODIUM CHLORIDE 0.9% 500 ML 500 ML IV ONE (10:07)
[2024-03-13 10:23] LABS: Glucose,Whole Blood 108 mg/dL (70-110)
[2024-03-13 10:32] VITALS: RESP 16; TEMP 97.7
[2024-03-13 10:32] LABS: Basophils % (A) 0 %; Eosinophils # (A) 0.2 k/uL (0-0.7); Eosinophils % (A) 2 %; HGB 13.2 gm/dL (13.0-17.5); Lymphocytes # (A) 2.2 k/uL (1.0-4.8); Lymphocytes % (A) 23 %; MCH 31.2 pg (25.0-35.0); MCHC 31.4 g/dL (31.0-37.0); MCV 99.4 fL (80.0-100.0); Macrocytosis Slight; Mean Platelet Volume 7.2; Monocytes # (A) 0.7 k/uL (0-1.0); Monocytes % (A) 8 %; Neutrophils # (A) 6.2 k/uL (1.3-7.7); Neutrophils % (A) 65 %; Platelet Count 331 k/uL (150-450); RBC 4.23 m/uL (4.30-5.90); RDW 14.2 % (11.5-15.5); WBC 9.6 k/uL (3.8-10.6)
[2024-03-13 10:41] LABS: African American GFR (CKD) 79 (>60 ml/min/1.73 sqM); Anion Gap 5 mmol/L; Blood Urea Nitrogen 23 mg/dL (9-20); Calcium 10.1 mg/dL (8.4-10.2); Carbon Dioxide 29 mmol/L (22-30); Chloride 105 mmol/L (98-107); Glucose 109 mg/dL (74-99); Non-African American GFR(CKD) 68 (>60 ml/min/1.73 sqM); Sodium 139 mmol/L (137-145)
[2024-03-13 10:46] LABS: Potassium 3.9 mmol/L (3.5-5.1)
[2024-03-13] MEDS: SODIUM CHLORIDE 0.9% 500 ML 500 ML IV SCH (11:06)
[2024-03-13] MEDS: VANCOMYCIN 1,500 MG in SODIUM CHLORIDE 0.9% 500 ML 500 ML IVPB ONE (11:06)
[2024-03-13] MEDS ORDERED: LIDOCAINE 1% INJ 10MG/ML (20 ML MDV) ONE ×2 (13:35)
[2024-03-13] MEDS ORDERED: fentaNYL (PF) 50 MCG/ML 2 ML AMP ONE (13:48)
[2024-03-13] MEDS: MIDAZOLAM 2 MG/2 ML VIAL IVP ONE (14:09)
[2024-03-13] MEDS: LIDOCAINE 1% INJ 10MG/ML (20 ML MDV) SQ ONE (14:13)
[2024-03-13] MEDS: DABIGATRAN 75 MG CAP PO STA (15:05)
--- NOTE | 2024-03-13 16:53 | P.EPPROC ---
- EP Procedure Note Electrophysiology Procedure Note: Diagnosis New development of a skin lesion over the pacemaker generator, about half a centimeter below the skin incision Freely mobile skin, no adherence to deeper tissues or pacemaker generator. No evidence for erosion or pre-erosion No evidence for infection no cellulitis, no pus discharge Procedure Excisional biopsy of this lesion, removal in toto Details Patient received IV vancomycin and Kefzol. The left pectoral area was prepped and draped per the usual pacemaker implant protocol. Local anesthesia given. A spindle-shaped incision was made around the lesion on the skin. The lesion was excised. Intraoperatively it was evident that the lesion was limited to the skin only This is sent for biopsy Hemostasis assured Wound closed with a 4-0 Vicryl followed by skin sutures Patient tolerated procedure well without any acute complications Plan keep wound dry Resume Pradaxa Follow-up next week for suture removal Patient is awaiting lithotripsy He needs to stop Pradaxa for a maximum of 4+1 doses only prior to lithotripsy
[2024-03-13 17:21] VITALS: BP 156/85; PULSE 66
== END 2024-03-13 15:37 | disposition home or self-care (01) ==
LOC: CATHEP 09:58
PROVIDERS: ATTEND Internal Medicine Clinical Cardiac Electrophysiology
DX: C76.1 Malignant neoplasm of thorax (principal); Z95.0 Presence of cardiac pacemaker
CPT/HCPCS: 12001; 88305; 80048; 85025; J2250; J3370; J0690; J2001

== ENCOUNTER 2024-03-26 06:40 | Day surgery (SDC) | payer MEDICARE ==
[2024-03-22 16:09] VITALS: BMI 31.6
--- NOTE | 2024-03-25 18:26 | P.HPIHPCON ---
History of Present Illness H&P Date: 03/25/24 Chief Complaint: Left renal stone This is a 78-year-old male with history of a 6 mm left-sided lower pole renal stone that was seen on KUB back on January 29. He has been having intermittent left flank pain and would like to have his stone addressed surgically. Option of observation, versus ESWL, versus ureteroscopy with holmium laser was discussed with him in detail. Risk benefit and rationale of each approach were discussed. He agreed to proceed with left-sided ESWL, aware of the risk which includes but not limited to bleeding, infection, potential treatment failure, potential of renal hematoma. Discussed also if the stone is not visualized on x-ray may not be able to proceed with the procedure. Of note he does have previous history of calcium oxalate stones that were treated with ESWL successfully in the past. He understood all the risk and agreed to proceed Consent for Procedure: I have explained the operation/procedure to the patient, including the risks, benefits, side effects, alternative therapies (including not receiving the proposed treatment or service), the likelihood of the patient achieving his/her goals, and potential recuperation problems for the procedure/sedation/analgesia, as well as any blood products, if indicated. I also explained to the patient the risks, benefits and side effects of the alternatives, as well as the risks related to not receiving the proposed procedure, care, treatment, or services. Past Medical History Past Medical History: Atrial Fibrillation, Asthma, Cancer, Diabetes Mellitus, GERD/Reflux, Hypertension, Prostate Disorder, Rheumatoid Arthritis (RA), Sleep Apnea/CPAP/BIPAP Additional Past Medical History / Comment(s): See Dr Zavala H&P, Hx PROSTATE AND SKIN CANCER , radiation for skin ca 2017, does not use CPAP ,hx kidney stones History of Any Multi-Drug Resistant Organisms: None Reported Past Surgical History: Bladder Surgery, Heart Catheterization, Orthopedic Surgery, Pacemaker, Prostate Surgery Additional Past Surgical History / Comment(s): removal of skin cancer, deviated septum, left knee surgery, rt shoulder rotator cuff, peter cataract, carpal tunnel rt wrist Past Anesthesia/Blood Transfusion Reactions: Previous Problems w/ Anesthesia Additional Past Anesthesia/Blood Transfusion Reaction / Comment(s): ATRIAL FIBRILLATION Type of Cardiac Device: Permanent Pacemaker Device Placement Date:: 2020 Past Psychological History: No Psychological Hx Reported Smoking Status: Never smoker Past Alcohol Use History: Rare Additional Past Alcohol Use History / Comment(s): chews tabacco Past Drug Use History: None Reported - Past Family History Mother Family Medical History: Cancer Medications and Allergies Home Medications Medication Instructions Recorded Confirmed Type Lansoprazole 30 mg PO QAM 05/29/14 03/22/24 History Cholecalciferol [Vitamin D3] 1,000 unit PO HS 05/30/14 03/22/24 History Atorvastatin [Lipitor] 20 mg PO HS 06/05/20 03/22/24 History Telmisartan/Hydrochlorothiazid 1 each PO BID 06/05/20 03/22/24 History [Telmisartan-Hctz 80-12.5 mg Tb] amLODIPine BESYLATE 10 mg PO QAM 06/05/20 03/22/24 History hydrALAZINE HCL [Apresoline] 25 mg PO BID 06/05/20 03/22/24 History metFORMIN HCL [Glucophage] 500 mg PO QAM 06/05/20 03/22/24 History predniSONE 5 mg PO Q48H 06/05/20 03/22/24 History sulfaSALAzine [Sulfasalazine] 1,000 mg PO BID 06/05/20 03/22/24 History Dabigatran [Pradaxa] 150 mg PO DAILY 04/30/21 03/22/24 History Fluticasone Propionate 110 Mcg 2 puff INHALATION DAILY PRN 04/30/21 03/22/24 History [Flovent 110 Mcg Inhaler (Mhu)] Glucosamine/Chondr Charles A Sod [Osteo 1 tab PO DAILY 04/30/21 03/22/24 History Bi-Flex Caplet] Montelukast [Singulair] 10 mg PO QAM 04/30/21 03/22/24 History Vitamin B Complex 1 tab PO DAILY 04/30/21 03/22/24 History clindamycin HCL 300 mg PO Q6H 03/09/24 03/22/24 History Allergies Allergy/AdvReac Type Severity Reaction Status Date / Time No Known Allergies Allergy Verified 03/22/24 15:48 Surgical - Exam - General no distress, moderate pain - Eyes normal ocular movement, no pale - Respiratory normal expansion, normal respiratory effort Assessment and Plan Assessment: OR for left-sided ESWL
[2024-03-26] MEDS ORDERED: LIDOCAINE 1% (10MG/ML) FOR IV START INTRADERMA PRN (07:14)
[2024-03-26] MEDS: IV FLUID CONTINUATION 1,000 ML IV ONE ×2 (07:23→08:28)
[2024-03-26 07:33] LABS: Glucose,Whole Blood 107 mg/dL (70-110)
[2024-03-26] MEDS: LACTATED RINGERS 1,000 ML IV SCH (07:39)
[2024-03-26 07:55] LABS: ALT 22 U/L (4-49); AST 22 U/L (17-59); African American GFR (CKD) 66 (>60 ml/min/1.73 sqM); Albumin 3.7 g/dL (3.5-5.0); Alkaline Phosphatase 64 U/L (38-126); Anion Gap 7 mmol/L; Blood Urea Nitrogen 23 mg/dL (9-20); Calcium 9.7 mg/dL (8.4-10.2); Carbon Dioxide 27 mmol/L (22-30); Chloride 106 mmol/L (98-107); Glucose 112 mg/dL (74-99); Non-African American GFR(CKD) 57 (>60 ml/min/1.73 sqM); Potassium 3.8 mmol/L (3.5-5.1); Sodium 140 mmol/L (137-145); Total Bilirubin 0.7 mg/dL (0.2-1.3); Total Protein 6.2 g/dL (6.3-8.2)
--- NOTE | 2024-03-26 08:10 | XR ---
EXAMINATION TYPE: XR [facility] DATE OF EXAM: 03/26/2024 COMPARISON: 01/30/2024 INDICATION: Renal stones TECHNIQUE: Single view abdomen FINDINGS: There is a normal bowel gas pattern. Psoas margins are normal. No organomegaly is present. There is an area of increased density over the right upper quadrant could be gallstone. Punctate left renal stones are present. IMPRESSION: 1. Punctate left renal stones largest measures 0.5 cm
[2024-03-26] MEDS ORDERED: LIDOCAINE 1% INJ 10MG/ML (20 ML MDV) ONE (08:27)
[2024-03-26] MEDS ORDERED: ePHEDrine 50 MG/ML 1 ML VIAL ONE (08:27)
[2024-03-26] MEDS ORDERED: PROPOFOL 10 MG/ML 20 ML VIAL IV ONE (08:27)
[2024-03-26] MEDS ORDERED: ONDANSETRON 4 MG/2 ML VIAL ONE (08:27)
[2024-03-26] MEDS ORDERED: fentaNYL (PF) 50 MCG/ML 2 ML AMP ONE (08:27)
[2024-03-26] MEDS ORDERED: WATER FOR INJECTION, STERILE 10 ML VIAL IV ONE (08:27)
--- NOTE | 2024-03-26 09:27 | P.OP ---
Date of Procedure: 03/26/24 Preoperative Diagnosis: Left renal calculus Postoperative Diagnosis: Same Procedure(s) Performed: Left ESWL (extracorporeal shock-wave lithotripsy) Anesthesia: SAMANTA Surgeon: Michel Pierce Estimated Blood Loss (ml): 0 IV fluids (ml): 500 Pathology: none sent Condition: stable Disposition: PACU Indications for Procedure: This is a 78-year-old male with history of a 6 mm left-sided lower pole renal stone that was seen on KUB back on January 29. He has been having intermittent left flank pain and would like to have his stone addressed surgically. He has a previous history of calcium oxalate stones that were treated with ESWL successfully in the past. Option of observation, versus ESWL, versus ureteroscopy with holmium laser was discussed with him in detail, and he has elected to undergo the former. Operative Findings: Questionable fragmentation. Description of Procedure: The patient was taken to the operating room and placed on the Dornier Compact Delta II lithotripter in the supine position. The calculus was seen on biplanar fluoroscopy. Once the patient was properly positioned and sedated, lithotripsy was performed. The energy level was gradually increased per protocol, to an energy level of 4. After 200 shocks were administered, a 2 minute pause was instituted per protocol. A total of 2500 shocks were given at a rate of 80 shocks per minute. Fluoroscopy was utilized at a minimum to ensure proper positioning and determine the treatment status. The appearance of the calculus appeared to change, suggesting fragmentation had occurred. The patient tolerated the procedure well was taken to the recovery room in stable condition. Instructions were given to strain the urine, and the patient will follow-up within one week.
[2024-03-26 09:38] VITALS: TEMP 96.8
[2024-03-26 09:51] VITALS: RESP 16
[2024-03-26 10:42] VITALS: BP 130/78; PULSE 78
== END 2024-03-26 11:15 | disposition home or self-care (01) ==
LOC: ORWHC2ENDO 06:40
PROVIDERS: ATTEND Urology
DX: N20.0 Calculus of kidney (principal); E11.9 Type 2 diabetes mellitus without complications; I10 Essential (primary) hypertension; I48.91 Unspecified atrial fibrillation; J45.909 Unspecified asthma, uncomplicated; K21.9 Gastro-esophageal reflux disease without esophagitis; M06.9 Rheumatoid arthritis, unspecified; G47.33 Obstructive sleep apnea (adult) (pediatric); F10.90 Alcohol use, unspecified, uncomplicated; Z79.02 Long term (current) use of antithrombotics/antiplatelets; Z79.51 Long term (current) use of inhaled steroids; Z79.84 Long term (current) use of oral hypoglycemic drugs; Z85.828 Personal history of other malignant neoplasm of skin; Z95.0 Presence of cardiac pacemaker; Z79.899 Other long term (current) drug therapy; Z85.528 Personal history of other malignant neoplasm of kidney; Z79.52 Long term (current) use of systemic steroids
CPT/HCPCS: 80053; 74018; 50590; J2405; J2001; J3010; J2704

== ENCOUNTER → 2024-04-02 | Outpatient (CLI) | payer MEDICARE ==
--- NOTE | 2024-04-02 12:42 | XR ---
EXAMINATION TYPE: XR [facility] DATE OF EXAM: 04/02/2024 COMPARISON: 03/26/2024, CT chest 01/21/2021 HISTORY: Pain TECHNIQUE: One view abdominal series FINDINGS: The osseous structures are intact. The bowel gas pattern is nonspecific. Lung bases are clear. Hyper trophic and degenerative changes of the spine. Hypertrophic arthropathy of the hips correlate for fem oral acetabular impingement. Soft tissue calcifications likely vascular. Cardiac leads noted. Multile anna degenerative change of the spine. Calcifications overlying the right upper quadrant appear to be related to CT findings of cholelithias is. The renal outlines: Right renal outline is obscured by bowel content. Left kidney: Punctate 1 mm left renal calculus. IMPRESSION: 1. Nonspecific abdomen. 2. Stable punctate left renal calculus measuring 1 to 2 mm smaller in size compared to prior exam. 3. Stable cholelithiasis..
== END | disposition home or self-care (01) ==
LOC: RADXRMAIN 12:23
PROVIDERS: ATTEND Urology
DX: K80.20 Calculus of gallbladder without cholecystitis without obstruction (principal); N20.0 Calculus of kidney
CPT/HCPCS: 74018

== ENCOUNTER → 2025-01-10 | Outpatient (CLI) | payer MEDICARE ==
[2025-01-10 20:42] LABS: Reticulocyte % 2.28 % (0.10-1.80)
[2025-01-10 21:38] LABS: % Iron Saturation 18.8 (15.00-50.00); Ferritin 34.1 ng/mL (22.0-322.0); Total Protein 6.3 g/dL (6.2-8.2)
[2025-01-10 23:58] LABS: Protein, Total 6.2 g/dL (6.2-8.2)
[2025-01-11 13:45] LABS: Free Kappa Lt Chain Qnt, Serum 2.72 mg/dL (0.33-1.94); Free Lambda Lt Chain Qnt, Seru 2.09 mg/dL (0.57-2.63)
[2025-01-14 13:30] LABS: Albumin 3.42 g/dL (3.80-4.90); Gamma Globulin 0.71 g/dL (0.70-1.50)
== END | disposition home or self-care (01) ==
LOC: LABT 14:36
PROVIDERS: ATTEND Internal Medicine
DX: D64.9 Anemia, unspecified (principal)
CPT/HCPCS: 82525; 82607; 82728; 82746; 83010; 83540; 83550; 83615; 83883; 84155; 84156; 84165; 84166; 85045